=== PATIENT | female | born 1955 | race Caucasian/White ===

== ENCOUNTER 2022-10-12 22:13 | Inpatient (IN) | payer OTHER ==
[~2022-10-12] VITALS: Ht 177.8 cm; Wt 89.2 kg
[2022-10-12] MEDS ORDERED: DEXTROSE (50%) 50ML SYRG IV PRN (22:30)
[2022-10-12] MEDS ORDERED: ONDANSETRON HCL 4 MG/2 ML VIAL IV PRN (22:30)
[2022-10-12] MEDS ORDERED: ACETAMINOPHEN 325 MG TAB PO PRN (22:30)
[2022-10-12] MEDS ORDERED: hydrALAZINE HCL 10 MG TAB PO PRN (22:30)
[2022-10-12 22:56] VITALS: BP 145/81
[2022-10-12] MEDS ORDERED: IBUP800T26 PO (23:13)
[2022-10-12] MEDS ORDERED: LEVO100T8 PO (23:13)
[2022-10-12] MEDS ORDERED: TRAZ1TAB12 PO (23:13)
[2022-10-12] MEDS ORDERED: OLME1TAB73 PO (23:13)
[2022-10-12] MEDS ORDERED: METF-370 PO (23:13)
[2022-10-12] MEDS ORDERED: MET50T PO (23:13)
[2022-10-12] MEDS ORDERED: AMIT1TAB35 PO (23:13)
[2022-10-12 23:41] LABS: INR 1.05 (0.9-1.15)
[2022-10-13] VITALS (9 sets, daily range): BP systolic 126–153; BP diastolic 63–80
[2022-10-13] MEDS: HYDROcodone-ACET 5/325MG TAB PO PRN (00:24)
[2022-10-13] MEDS: SODIUM CHLORIDE 0.9% 1,000 ML IV SCH ×3 (00:25→19:15)
[2022-10-13] MEDS: MORPHINE SULFATE INJ 2 MG/ml SYRG IV PRN ×2 (04:03→10:17)
[2022-10-13] MEDS: InsuLIN REG 1unit/0.01ml Soln (100units/ml) SC SCH ×4 (06:24→22:00)
[2022-10-13] MEDS: ACCU-CHEK COMFORT CURVE STRIP VI SCH ×4 (06:24→22:14)
[2022-10-13] MEDS: LEVOTHYROXINE SODIUM 100 MCG TAB PO SCH (06:24)
[2022-10-13 06:44] LABS: Calcium 9.1 mg/dL (8.5-10.1); Potassium 3.6 mmol/L (3.5-5.1)
[2022-10-13 06:45] LABS: Basophils # (auto) 0.1 10 ^3/uL (0-0.2); Eosinophils # (auto) 0.1 10 ^3/uL (0-0.8); Eosinophils % (auto) 1.4 % (0.0-7.0); Hematocrit 34.1 % (36.0-46.0); Hemoglobin 12.3 g/dL (12.2-16.2); Lymphocytes # (auto) 1.1 10 ^3/uL (0.4-5.4); Lymphocytes % (auto) 17.8 % (10.0-50.0); Mean Corpuscular Hemoglobin 33.7 pg (28.0-32.0); Mean Corpuscular Volume 93.7 fL (80.0-100.0); Monocytes # (auto) 0.7 10 ^3/uL (0-1.3); Monocytes % (auto) 11.6 % (0.0-12.0); Neutrophils % (auto) 68.2 % (37.0-80.0); Nucleated Red Blood Cells % 0.1 %; Red Blood Cells 3.63 10^6/uL (4.0-5.20); Red Cell Distribution Width 12.7 % (11.8-14.3); White Blood Cell 5.9 10^3/uL (4.4-10.8)
[2022-10-13 06:46] LABS: BUN/Creatinine Ratio 15.8 (10.0-20.0)
[2022-10-13] MEDS: METOPROLOL TARTRATE 50 MG TAB PO SCH (10:16)
[2022-10-13] MEDS ORDERED: fentaNYL CITRATE 100 MCG/2 ML VL ONE (15:00)
[2022-10-13] MEDS ORDERED: MIDAZOLAM HCL 2MG/2ML 2ml VIAL (1mg/ml) ONE (15:00)
[2022-10-13] MEDS ORDERED: KETAMINE HCL 10 ML ONE (15:00)
[2022-10-13] MEDS ORDERED: ONDANSETRON HCL 4 MG/2 ML VIAL ONE (15:01)
[2022-10-13] MEDS ORDERED: GLYCOPYRROLATE 0.2 MG/ML 1ML VIAL ONE (15:01)
[2022-10-13] MEDS ORDERED: BUPIVACAINE 0.5% P/F INJ 10 ML VIAL ONE (15:03)
[2022-10-13] MEDS ORDERED: MORPHINE SULF PF 5 MG/10 ML VIAL ONE (15:04)
[2022-10-13] MEDS ORDERED: ePHEDrine SULFATE 50 MG/ML AMP ONE (15:05)
[2022-10-13] MEDS ORDERED: BUPIVACAINE 0.25% INJ 50ML VIAL ONE (15:05)
[2022-10-13] MEDS ORDERED: PROPOFOL 10 MG/ML 20 ML IV ONE (15:05)
[2022-10-13] MEDS ORDERED: ceFAZolin 1GM/50ML 100 ML IV ONE (15:05)
[2022-10-13] MEDS ORDERED: LACTATED RINGER'S 1,000 ML IV SCH (16:30)
[2022-10-13] MEDS: ceFAZolin 1GM/50ML 50 ML IV SCH ×2 (16:30→22:30)
[2022-10-13] MEDS ORDERED: NALOXONE HCL 0.4 MG/ML VIAL IV PRN ×2 (16:45)
[2022-10-13] MEDS ORDERED: DexAMETHasone SOD PHOS 10MG/1ML VIAL INJ IV PRN (16:45)
[2022-10-13] MEDS ORDERED: diphenhdrAMINE HCL 50 MG/1 ML VL IV PRN (16:45)
[2022-10-13] MEDS ORDERED: ONDANSETRON HCL 4 MG/2 ML VIAL IV PRN (16:45)
[2022-10-13] MEDS: AMITRIPTYLINE HCL 25 MG TAB PO SCH (22:00)
[2022-10-13] MEDS: traZODone HCL 50 MG TAB PO SCH (22:00)
[2022-10-13] MEDS: KETOROLAC TROMETH 30 MG/ML 1ML VIAL IV PRN (23:49)
[2022-10-14] VITALS (25 sets, daily range): BP systolic 105–144; BP diastolic 54–74
[2022-10-14] MEDS: ceFAZolin 1GM/50ML 50 ML IV SCH (04:23)
[2022-10-14] MEDS: ACCU-CHEK COMFORT CURVE STRIP VI SCH ×4 (06:26→21:23)
[2022-10-14] MEDS: LEVOTHYROXINE SODIUM 100 MCG TAB PO SCH (06:26)
[2022-10-14] MEDS: InsuLIN REG 1unit/0.01ml Soln (100units/ml) SC SCH ×4 (06:27→21:28)
[2022-10-14 07:11] LABS: Hemoglobin 10.4 g/dL (12.2-16.2); Mean Corpuscular Volume 93.4 fL (80.0-100.0); Neutrophils # (auto) 8.1 10 ^3/uL (1.6-8.6); Neutrophils % (auto) 81.2 % (37.0-80.0)
[2022-10-14 07:17] LABS: Albumin 2.8 g/dL (3.4-5.0); Calcium 8.4 mg/dL (8.5-10.1); Potassium 3.6 mmol/L (3.5-5.1)
[2022-10-14 07:22] LABS: BUN/Creatinine Ratio 15.3 (10.0-20.0); Bilirubin, Total 0.6 mg/dL (0.2-1.0); Total Protein 5.8 g/dL (6.4-8.2)
[2022-10-14 08:32] LABS: Basophils # (auto) 0.1 10 ^3/uL (0-0.2); Basophils % (auto) 0.7 % (0.0-2.0); Eosinophils # (auto) 0.1 10 ^3/uL (0-0.8); Eosinophils % (auto) 0.5 % (0.0-7.0); Hematocrit 28.1 % (36.0-46.0); Lymphocytes % (auto) 9.6 % (10.0-50.0); Mean Corpuscular Hemoglobin 34.4 pg (28.0-32.0); Monocytes # (auto) 0.8 10 ^3/uL (0-1.3); Red Blood Cells 3.01 10^6/uL (4.0-5.20); Red Cell Distribution Width 12.8 % (11.8-14.3)
[2022-10-14 08:33] LABS: Mean Corpuscular Hgb Conc. 36.9 g/dL (32.0-36.0)
[2022-10-14] MEDS: SODIUM CHLORIDE 0.9% 1,000 ML IV SCH ×2 (09:10→21:39)
[2022-10-14] MEDS: METOPROLOL TARTRATE 50 MG TAB PO SCH (09:11)
[2022-10-14] MEDS: ENOXAPARIN SOD 40 MG/0.4 ML SYRINGE SC SCH (09:12)
[2022-10-14] MEDS: KETOROLAC TROMETH 30 MG/ML 1ML VIAL IV PRN ×2 (09:15→16:37)
[2022-10-14] MEDS: HYDROcodone-ACET 5/325MG TAB PO PRN (12:30)
[2022-10-14] MEDS: traZODone HCL 50 MG TAB PO SCH (21:33)
[2022-10-14] MEDS: AMITRIPTYLINE HCL 25 MG TAB PO SCH (21:36)
[2022-10-14] MEDS ORDERED: FUROSEMIDE 40 MG/4 ML VIAL ONE (22:55)
[2022-10-15] VITALS (7 sets, daily range): BP systolic 108–142; BP diastolic 56–66
[2022-10-15] MEDS: KETOROLAC TROMETH 30 MG/ML 1ML VIAL IV PRN ×2 (05:56→21:56)
[2022-10-15 06:23] LABS: Calcium 8.5 mg/dL (8.5-10.1); Potassium 3.8 mmol/L (3.5-5.1)
[2022-10-15] MEDS: ACCU-CHEK COMFORT CURVE STRIP VI SCH ×4 (06:42→22:00)
[2022-10-15] MEDS: InsuLIN REG 1unit/0.01ml Soln (100units/ml) SC SCH ×4 (06:45→22:00)
[2022-10-15] MEDS: LEVOTHYROXINE SODIUM 100 MCG TAB PO SCH (06:46)
[2022-10-15] MEDS: HYDROcodone-ACET 5/325MG TAB PO PRN ×2 (06:58→19:58)
[2022-10-15 07:36] LABS: Basophils # (auto) 0.1 10 ^3/uL (0-0.2); Eosinophils # (auto) 0.1 10 ^3/uL (0-0.8); Hemoglobin 8.8 g/dL (12.2-16.2); Lymphocytes # (auto) 0.8 10 ^3/uL (0.4-5.4); Neutrophils # (auto) 6.6 10 ^3/uL (1.6-8.6); Red Blood Cells 2.55 10^6/uL (4.0-5.20)
[2022-10-15 07:38] LABS: Eosinophils % (auto) 1.1 % (0.0-7.0); Hematocrit 23.8 % (36.0-46.0); Lymphocytes % (auto) 10.1 % (10.0-50.0); Mean Corpuscular Hemoglobin 34.4 pg (28.0-32.0); Mean Corpuscular Volume 93.3 fL (80.0-100.0); Monocytes # (auto) 0.7 10 ^3/uL (0-1.3); Monocytes % (auto) 8.7 % (0.0-12.0); Neutrophils % (auto) 79.1 % (37.0-80.0); Red Cell Distribution Width 12.6 % (11.8-14.3); White Blood Cell 8.3 10^3/uL (4.4-10.8)
[2022-10-15 07:41] LABS: Mean Corpuscular Hgb Conc. 36.9 g/dL (32.0-36.0)
[2022-10-15] MEDS: METOPROLOL TARTRATE 50 MG TAB PO SCH (09:46)
[2022-10-15] MEDS: ENOXAPARIN SOD 40 MG/0.4 ML SYRINGE SC SCH (09:46)
[2022-10-15] MEDS: SODIUM CHLORIDE 0.9% 1,000 ML IV SCH (09:46)
[2022-10-15] MEDS: MORPHINE SULFATE INJ 2 MG/ml SYRG IV PRN (11:40)
[2022-10-15] MEDS: AMITRIPTYLINE HCL 25 MG TAB PO SCH (21:56)
[2022-10-15] MEDS: traZODone HCL 50 MG TAB PO SCH (21:56)
[2022-10-16] MEDS: ACETAMINOPHEN 325 MG TAB PO PRN ×2 (00:15→10:15)
[2022-10-16 05:00] VITALS: BP 124/68
[2022-10-16] MEDS: ACCU-CHEK COMFORT CURVE STRIP VI SCH ×2 (06:33→11:30)
[2022-10-16] MEDS: InsuLIN REG 1unit/0.01ml Soln (100units/ml) SC SCH ×2 (06:35→11:30)
[2022-10-16] MEDS: LEVOTHYROXINE SODIUM 100 MCG TAB PO SCH (06:36)
[2022-10-16 08:00] VITALS: BP 129/63
[2022-10-16 08:10] LABS: Hemoglobin 7.7 g/dL (12.2-16.2)
[2022-10-16 08:13] LABS: Hematocrit 21.7 % (36.0-46.0)
[2022-10-16] MEDS ORDERED: METOPROLOL TARTRATE 50 MG TAB PO SCH (10:00)
[2022-10-16] MEDS ORDERED: FAMOTIDINE 20 MG TAB PO SCH (10:00)
[2022-10-16] MEDS: ENOXAPARIN SOD 40 MG/0.4 ML SYRINGE SC SCH (10:04)
[2022-10-16 11:48] VITALS: BP 132/65
[2022-10-16] MEDS: KETOROLAC TROMETH 30 MG/ML 1ML VIAL IV PRN (12:11)
== END 2022-10-16 13:00 | DRG 482 ==
LOC: TELE 22:13 → TELE-WESTW 22:15
PROVIDERS: ADMIT Internal Medicine; ATTEND Internal Medicine
PROC: 0QS734Z Reposition Left Upper Femur with Internal Fixation Device, Percutaneous Approach (ICD-10-PCS; principal; 2022-10-14)
PROC: BQ11ZZZ Fluoroscopy of Left Hip (ICD-10-PCS; 2022-10-14)
DX: S72.142A Displaced intertrochanteric fracture of left femur, initial encounter for closed fracture (principal); W01.0XXA Fall on same level from slipping, tripping and stumbling without subsequent striking against object, initial encounter; E03.9 Hypothyroidism, unspecified; E78.00 Pure hypercholesterolemia, unspecified; F32.A Depression, unspecified; I10 Essential (primary) hypertension; E11.42 Type 2 diabetes mellitus with diabetic polyneuropathy; Z75.1 Person awaiting admission to adequate facility elsewhere; Z88.1 Allergy status to other antibiotic agents; Z88.0 Allergy status to penicillin; Y93.89 Activity, other specified; Y92.096 Garden or yard of other non-institutional residence as the place of occurrence of the external cause; Y99.8 Other external cause status
CPT/HCPCS: 36415; 71045; 73502; 76000; 80048; 80053; 82962; 85014; 85018; 85025; 85610; 86850; 86900; 86901; 87081; 87426; 93306; 97110; 97163; 97530; G0378; J0690; J1815; J1885; J2250; J2405; J2704; J3490